=== PATIENT | female | born 1935 | race Caucasian/White ===

== ENCOUNTER → 2016-05-20 07:19 | Outpatient (CLI) | payer MEDICARE, BC ==
[2014-11-17 10:18] VITALS: BMI 34.7
[~2016-05-20 07:19] MED LIST: ALBUTEROL2.5 MG/3 M UPD; ALDACTONE50 MG PO; ASPIRIN EC81 M1 PO; AUGMENTIN 875-11 TAB PO; BUMEX2 MG PO; CARAFATE1 G/10 ML PO; CINNAMON500 MG PO; COREG 3.1253.125 MG PO; CQ-10 PO; CRANBERRY475 MG PO; FLAGYL 500500 MG/100 PO; FLUTICASONE PRO16 GM NASAL; FOLIC ACID1 MG PO; GLUCOPHAGE500 MG PO; GLUCOTROL 5 MG T5 MG PO; GLUCOTROL XL 5 M5 MG PO; GRAPESEED PO; K-TAB10 MEQ PO; LEVAQUIN500 MG PO; LISINOPRIL5 MG PO; LYRICA150 MG; LYRICA150 MG PO; METOPROLOL TART50 MG PO; MUCINEX DM ER1 EAC1 PO; NITROQUICK0.4 MG SL; NITROSTAT0.4 MG SL; PREDNISONE10 MG PO; PRILOSEC20 MG PO; PROTONIX40 MG PO; PROVENTIL HFA6.7 GM INH; REQUIP0.25 MG PO; REQUIP0.5 MG PO; SINGULAIR10 MG PO; SYMBICORT 16010.2 GM INH; TRAZODONE HCL150 MG PO; TRAZODONE HCL50 MG PO; TUMS500 MG PO; VITAMIN D31000 UNI2 PO; ZOCOR20 MG PO; [UNRECOGNIZED DRUG - OTHER] PO
== END | disposition home or self-care (01) ==
LOC: D.RT 07:19
DX: J45.909 Unspecified asthma, uncomplicated (principal)

== ENCOUNTER 2016-06-14 18:05 | Observation (INO) | payer MEDICARE, BC ==
[~2016-06-14] VITALS: Ht 165.1 cm; Wt 97.8 kg
--- NOTE | ~2016-06-14 | CN ---
PATIENT NAME:CINTHIA LYNCH MEDICAL RECORD: [id number] : 37 LOCATION:[facility] D.2118 ADMIT DATE: 06/14/16 ACCOUNT: [id number] CONSULTING PHYSICIAN: INDIA BANUELOS MD REFERRING PHYSICIAN: SANDEE PUTNAM MD DATE OF CONSULTATION: 06/15/2016 ADMITTING DIAGNOSES: 1. Chest pain. 2. Diabetes. 3. Hypertension. 4. Gastroesophageal reflux disease. 5. Abnormal ECG. HISTORY OF PRESENT ILLNESS: Mrs. Lynch presents with left arm pain, not really chest pain. She had a similar presentation [address] [facility], underwent cardiac catheterization revealing no significant coronary artery disease. She was only treated medically for hypertension with Aldactone, Bumex and Coreg. PHYSICAL EXAMINATION: GENERAL APPEARANCE: Well-nourished, well-developed, appears stated age. Level of distress, comfortable. PSYCHIATRIC: Mental status, alert, normal affect. Orientation, oriented to time, place and person. EYES: Lids and conjunctiva, noninjected. No discharge, no pallor. ENT: Lips, teeth, gums, normal dentition. Oropharynx, no cyanosis, no pallor. NECK: Carotid arteries, bilateral normal upstroke, no bruits, no thrills. JUGULAR VEINS: No jugular venous pressure or distention. CERVICAL LYMPH NODES: Nontender, nonenlarged. THYROID: Not enlarged. Nontender. No nodules. LUNGS: Respiratory effort, unlabored. CHEST: Normal curvature. No thoracic deformity. No chest wall tenderness. Percussion, resonant. Auscultation, clear. No wheezes, no rales, no rhonchi. CARDIOVASCULAR: Precordial exam, nondisplaced. No heaves or pericardial thrills. Rate and rhythm, regular. Heart sounds, normal S1, normal S2. No S3, no gallop, no rub. Systolic murmur, not heard. Diastolic murmur, not heard. EXTREMITIES: No cyanosis, no edema. Peripheral pulses, full and equal in all extremities, except as noted. No bruits appreciated. ABDOMEN: Soft, nondistended. Normal aorta. No bruit. Nontender. No masses. Liver, nontender, no hepatomegaly. Spleen, nontender, no splenomegaly. MUSCULOSKELETAL: No joint tenderness. No joint swelling. No erythema. NEUROLOGICAL: Normal gait, normal strength, normal tone. SKIN: Warm and dry. REVIEW OF SYSTEMS: The patient reports easy bruising but reports no swollen glands. The patient reports no fever, no night sweats, no significant weight gain, no significant weight loss. No significant exercise tolerance. The patient reports no dry eyes, no irritation, no vision change. Patient reports no difficulty hearing and no ear pain. Patient reports no frequent nose bleeds or nose and sinus problems. Patient reports on arm pain on exertion. No shortness of breath while lying down. No history of heart murmur. Patient reports no cough, no wheezing or coughing up blood. Patient reports no abdominal pain, no vomiting. Normal appetite. No diarrhea and not vomiting blood. No nausea and no constipation. Patient reports no incontinence. No difficulty urinating. No hematuria. No increased frequency. Patient reports CONSULT REPORT [id number] CINTHIA LYNCH no muscle aches. No weakness, no arthralgias, no back pain. No swelling of the extremities. Patient reports no abnormal mole, no jaundice, no rashes. Reports no loss of consciousness. No weakness and no numbness. No seizures, dizziness, or headaches. The patient reports no depression, no sleep disturbance, feeling safe in a relationship and no alcohol abuse. Patient reports on fatigue. Reports no runny nose or sinus pressure. No itching, no hives, and no frequent sneezing. DIAGNOSTIC DATA: A 12-lead ECG is suggestive of previous anterior myocardial infarction with poor R-wave progression, but no ST-T abnormalities. Her troponin is normal. OVERALL IMPRESSION: Chest pain, normal cardiac catheterization 1 month ago, normal troponin. At this time, no other cardiac workup treatment is necessary. Chest pain is noncardiac. TRANSINT:[id number] Voice Confirmation ID: [id number] DOCUMENT ID: [id number] INDIA BANUELOS MD CC: [id number] DICTATION DATE: 06/15/16 1018 DISPLAY DESIGNER OUTSIDE: 06/15/16 1055 [facility] [place] [address] [place] [address]
[~2016-06-14 18:05] MED LIST changes: -COREG 3.1253.125 MG PO; -FLUTICASONE PRO16 GM NASAL; -GLUCOTROL 5 MG T5 MG PO; -NITROSTAT0.4 MG SL; -PREDNISONE10 MG PO; -SINGULAIR10 MG PO; -SYMBICORT 16010.2 GM INH
[2016-06-14 19:20] LABS: BASOPHILS 0.1 % (0-2); EOSINOPHILS 1.2 % (0-7); HEMATOCRIT 45.4 % (36.0-48.0); HEMOGLOBIN 15.3 g/dL (12-16); IMMATURE GRANULOCYTES 0.7 % (0-5); LYMPHOCYTES 17.9 % (15-50); MCH 29.3 pg (26.0-34.0); MCHC 33.7 g/dL (31.0-37.0); MCV 86.8 fL (80.0-100.0); MEAN PLATELET VOLUME 11.2 fL (7.4-10.4); MONOCYTES 8.8 % (2-11); NEUTROPHILS 71.3 % (40-80); PLATELET COUNT 218 10x3/uL (130-400); RBC 5.23 10x6/uL (4.00-5.40); RDW 14.7 % (11.5-14.5); WBC 10.4 10x3/uL (4.8-10.8)
[2016-06-14 19:31] LABS: ALBUMIN 4.2 g/dL (3.4-5.0); ALKALINE PHOSPHATASE 100 U/L (46-116); ALT (SGPT) 44 U/L (10-68); BILIRUBIN - TOTAL 0.73 mg/dL (0.2-1.3); CALC OSMOLALITY 292 mosm/kg (275-300); CALCIUM 10.3 mg/dL (8.5-10.1); CARBON DIOXIDE 27.3 mmol/L (21.0-32.0); CHLORIDE - SERUM 102 mmol/L (98-107); CREATININE - SERUM 1.2 mg/dL (0.6-1.3); GLUCOSE 157 mg/dL (74-106); POTASSIUM - SERUM 4.1 mmol/L (3.5-5.1); PROTEIN - SERUM 9.1 g/dL (6.4-8.2); SODIUM 142 mmol/L (136-145); UREA NITROGEN 33 mg/dL (7-18); eGFR NON AFRICAN AMERICAN 46 mL/min (90-120)
[2016-06-14 19:42] LABS: CHOL - HDL RATIO 4.4 ratio (2.3-4.1); CHOLESTEROL, TOTAL 184 mg/dL (0-200); CKMB 0.4 U/L (0.0-3.6); CREATINE KINASE 44 UL (21-215); HDL CHOLESTEROL 42 mg/dL (32-96); LDL CHOLESTEROL 95 mg/dL (0-100); LDL-HDL RATIO 2.3 ratio (1.5-3.5); TRIGLYCERIDE 239 mg/dL (30-200); TROPONIN-I < 0.017 ng/mL (0.000-0.060)
[2016-06-14] MEDS ORDERED: GLUCOTROL 5 MG T5 MG PO (22:36)
[2016-06-14] MEDS ORDERED: SYMBICORT 16010.2 GM INH (22:38)
[2016-06-14] MEDS ORDERED: SINGULAIR10 MG PO (22:38)
[2016-06-14] MEDS ORDERED: FLUTICASONE PRO16 GM NASAL (22:38)
[2016-06-14] MEDS ORDERED: COREG 3.1253.125 MG PO (22:39)
[2016-06-14] MEDS ORDERED: NITROSTAT0.4 MG SL (22:39)
--- NOTE | 2016-06-14 22:40 | NUR ---
PT ARRIVES TO THE FLOOR VIA WC ACCOMPANIED BY ER NURSE. PLACED ON TELE UPON ARRIVAL, NSR ON MONITOR - HR 84. DENIES ANY C/O PAIN. ROOM AIR, SATS 94%. DAUGHTER HERE WITH PT AT THE BEDSIDE. ADMISSION ASSESSMENT AND HISTORY COMPLETED, VSS, AFEBRILE. UNIT ROUTINES AND PROTOCOLS DISCUSSED WITH PT, VERBALIZED UNDERSTANDING. CALL LIGHT PLACED WITHIN REACH. WILL CONT TO MONITOR.
[2016-06-14 22:54] VITALS: BP 140/84; Ht 165.1 cm; Wt 97.8 kg
[2016-06-15 04:26] VITALS: BP 117/66
--- NOTE | 2016-06-15 07:30 | NUR ---
RECEIVED PT IN BED AAOX 4 RESP UNLABORED DENIES ANY NEEDS OR DISCOMFORT AT THIS TIME NAD NOTED
[2016-06-15 07:59] VITALS: BP 117/63
[2016-06-15 12:40] VITALS: BP 110/59
[2016-06-15] MEDS ORDERED: PREDNISONE10 MG PO (14:04)
--- NOTE | 2016-06-15 17:30 | NUR ---
REVIEWED DISCHARGE INSTRUCTIONS WITH PT STATES UNDERSTANDING COPY GIVEN TO PT DCD SALINE LOCK TO RAC WITH 20 GA IV CATHETER TIP INTACTNO REDNESS OR EDEMA NOTED AT SITE PT DISCHARGED HOME LEFT UNIT IN STABLE CONDITION VIA W/C WITH ALL PERSONAL BELONGINGS
== END 2016-06-15 17:30 | disposition home or self-care (01) ==
LOC: D.ER 18:05 → D.M2 21:27 → OBSVTIME 22:40 → D.M2 06-15 17:30
PROVIDERS: Family Medicine; ADMIT Family Medicine
DX: R07.89 Other chest pain (principal); K52.9 Noninfective gastroenteritis and colitis, unspecified; E11.65 Type 2 diabetes mellitus with hyperglycemia; R94.31 Abnormal electrocardiogram [ECG] [EKG]; I11.0 Hypertensive heart disease with heart failure; I50.9 Heart failure, unspecified; G47.33 Obstructive sleep apnea (adult) (pediatric); K57.90 Diverticulosis of intestine, part unspecified, without perforation or abscess without bleeding; K21.9 Gastro-esophageal reflux disease without esophagitis

== ENCOUNTER → 2017-01-29 09:21 | Outpatient (CLI) | payer MEDICARE, BC ==
[2016-06-14 22:54] VITALS: BMI 36.6
[~2017-01-29 09:21] MED LIST changes: +COREG 3.1253.125 MG PO; +FLUTICASONE PRO16 GM NASAL; +GLUCOTROL 5 MG T5 MG PO; +NITROSTAT0.4 MG SL; +PREDNISONE10 MG PO; +SINGULAIR10 MG PO; +SYMBICORT 16010.2 GM INH
== END | disposition home or self-care (01) ==
LOC: D.RAD 09:21
DX: J45.909 Unspecified asthma, uncomplicated (principal)

== ENCOUNTER → 2017-06-26 13:23 | Outpatient (CLI) | payer MEDICARE, BC ==
[2016-06-14 22:54] VITALS: BMI 36.6
[~2017-06-26 13:23] MED LIST changes: +JANUVIA50 MG PO; +ROBAXIN-750750 MG PO; +ZIPSOR25 MG PO
== END | disposition home or self-care (01) ==
LOC: D.CT 13:23
DX: N18.9 Chronic kidney disease, unspecified (principal)

== ENCOUNTER 2017-07-14 16:03 | Emergency (ER) | payer MEDICARE, BC ==
[2016-06-14 22:54] VITALS: BMI 36.6
[~2017-07-14 16:03] MED LIST changes: -JANUVIA50 MG PO; -ROBAXIN-750750 MG PO; -ZIPSOR25 MG PO
[2017-07-14 19:22] LABS: BASOPHILS 0.2 % (0-2); EOSINOPHILS 1.5 % (0-7); HEMATOCRIT 41.8 % (36.0-48.0); HEMOGLOBIN 13.8 g/dL (12-16); IMMATURE GRANULOCYTES 0.5 % (0-5); LYMPHOCYTES 22.5 % (15-50); MCH 29.3 pg (26.0-34.0); MCV 88.7 fL (80.0-100.0); MONOCYTES 11.7 % (2-11); NEUTROPHILS 63.6 % (40-80); RBC 4.71 10x6/uL (4.00-5.40); RDW 14.6 % (11.5-14.5); WBC 8.4 10x3/uL (4.8-10.8)
[2017-07-14 19:33] LABS: PLATELET COUNT 161 10x3/uL (130-400)
== END 2017-07-14 19:34 | disposition home or self-care (01) ==
LOC: D.ER 16:03
PROVIDERS: Physician Assistant Medical
DX: S40.011A Contusion of right shoulder, initial encounter (principal); S70.01XA Contusion of right hip, initial encounter; S00.83XA Contusion of other part of head, initial encounter; V43.52XA Car driver injured in collision with other type car in traffic accident, initial encounter; Y93.89 Activity, other specified; Y92.410 Unspecified street and highway as the place of occurrence of the external cause; I50.9 Heart failure, unspecified; E11.9 Type 2 diabetes mellitus without complications; I10 Essential (primary) hypertension; Z90.5 Acquired absence of kidney

== ENCOUNTER 2017-07-30 12:21 | Emergency (ER) | payer MEDICARE, BC ==
[~2017-07-30] VITALS: Ht 165.1 cm; Wt 100.9 kg
[2017-07-30 12:54] VITALS: Ht 165.1 cm; Wt 100.9 kg
[2017-07-30] MEDS ORDERED: JANUVIA50 MG PO (13:01)
[2017-07-30 13:44] LABS: BASOPHILS 0.2 % (0-2); EOSINOPHILS 2.5 % (0-7); HEMATOCRIT 42.9 % (36.0-48.0); HEMOGLOBIN 14.4 g/dL (12-16); IMMATURE GRANULOCYTES 0.6 % (0-5); LYMPHOCYTES 20.9 % (15-50); MCH 29.8 pg (26.0-34.0); MCHC 33.6 g/dL (31.0-37.0); MCV 88.8 fL (80.0-100.0); MEAN PLATELET VOLUME 11.3 fL (7.4-10.4); MONOCYTES 10.6 % (2-11); NEUTROPHILS 65.2 % (40-80); PLATELET COUNT 191 10x3/uL (130-400); RBC 4.83 10x6/uL (4.00-5.40); RDW 14.6 % (11.5-14.5); WBC 8.9 10x3/uL (4.8-10.8)
[2017-07-30 14:00] LABS: ALKALINE PHOSPHATASE 99 U/L (46-116); ALT (SGPT) 103 U/L (10-68); BILIRUBIN - TOTAL 0.81 mg/dL (0.2-1.3); CALC OSMOLALITY 290 mosm/kg (275-300); CALCIUM 9.3 mg/dL (8.5-10.1); CARBON DIOXIDE 31.1 mmol/L (21.0-32.0); CHLORIDE - SERUM 103 mmol/L (98-107); CREATININE - SERUM 1.1 mg/dL (0.6-1.3); GLUCOSE 139 mg/dL (74-106); POTASSIUM - SERUM 3.7 mmol/L (3.5-5.1); PROTEIN - SERUM 8.6 g/dL (6.4-8.2); SODIUM 143 mmol/L (136-145); UREA NITROGEN 24 mg/dL (7-18); eGFR NON AFRICAN AMERICAN 50 mL/min (90-120)
[2017-07-30 14:11] LABS: CKMB 0.5 U/L (0.0-3.6); CREATINE KINASE 42 UL (21-215); PRO BNP 43 pg/mL (0-450)
[2017-07-30] MEDS ORDERED: ROBAXIN-750750 MG PO (16:26)
[2017-07-30] MEDS ORDERED: ZIPSOR25 MG PO (16:26)
[2017-07-30 16:54] VITALS: BP 130/84
== END 2017-07-30 16:48 | disposition home or self-care (01) ==
LOC: D.ER 12:21
PROVIDERS: Family Medicine
DX: S16.1XXA Strain of muscle, fascia and tendon at neck level, initial encounter (principal); V49.9XXA Car occupant (driver) (passenger) injured in unspecified traffic accident, initial encounter; Y93.89 Activity, other specified; Y92.410 Unspecified street and highway as the place of occurrence of the external cause; M25.511 Pain in right shoulder; E11.9 Type 2 diabetes mellitus without complications; I10 Essential (primary) hypertension; I50.9 Heart failure, unspecified; K21.9 Gastro-esophageal reflux disease without esophagitis; Z90.5 Acquired absence of kidney

== ENCOUNTER → 2017-09-25 07:32 | Outpatient (CLI) | payer MEDICARE, BC ==
[2017-07-30 12:54] VITALS: BMI 37.0
[~2017-09-25 07:32] MED LIST changes: +JANUVIA50 MG PO; +ROBAXIN-750750 MG PO; +ZIPSOR25 MG PO
== END | disposition home or self-care (01) ==
LOC: D.RT 07:32
DX: J84.9 Interstitial pulmonary disease, unspecified (principal)

== ENCOUNTER → 2017-10-07 08:29 | Outpatient (CLI) | payer MEDICARE, BC ==
[2017-07-30 12:54] VITALS: BMI 37.0
== END | disposition home or self-care (01) ==
LOC: D.NM 08:29
DX: M25.561 Pain in right knee (principal)

== ENCOUNTER → 2018-06-25 09:19 | Outpatient (CLI) | payer MEDICARE, BC ==
[2017-07-30 12:54] VITALS: BMI 37.0
== END | disposition home or self-care (01) ==
LOC: D.NM 09:19
PROVIDERS: ATTEND Orthopaedic Surgery
DX: M25.562 Pain in left knee (principal)

== ENCOUNTER → 2018-10-07 07:23 | Outpatient (CLI) | payer MEDICARE, BC ==
[2017-07-30 12:54] VITALS: BMI 37.0
--- NOTE | 2018-10-11 09:24 | EC ---
PATIENT:CINTHIA LOMELI DATE OF SERVICE: 10/07/18 SEX: F MEDICAL RECORD: [id number] DATE OF : 37 LOCATION:D.RT AGE OF PATIENT: 83 ADMISSION DATE: 10/07/18 REFERRING PHYSICIAN: INTERPRETING PHYSICIAN: LAWANDA FLYNN MD ECHOCARDIOGRAM REPORT ECHO CHARGES 4 ECHO COMPLETE Date: 10/07/18 CLINICAL DIAGNOSIS: DYSPNEA ECHOCARDIOGRAPHIC MEASUREMENTS (adult normal given) AC root (d.<3.7cm) 3.1 cm LV Septum d (<1.2 cm> 1.2 cm Valve Excursion 1.5 cm LV Septum (systole) 1.6 cm Left Atria (s.<4.0cm> 4.1 cm LVPW d(<1.2cm) 1.2 cm RV (d.<2.3cm) 2.3 cm LVPW (sytole) 2.0 cm LV diastole(<5.6CM) 5.3 cm MV E-F(>70mm/sec) cm LV systole 3.5 cm LVOT Diameter 1.9 cm MV exc.(>10mm) cm Est.ejection fraction (50-75%) % DOPPLER: LVIT cm/sec A 113 cm/sec E 48.0 cm/sec LA cm/sec RVSP 22.0 mmHg LVOT 88.0 cm/sec AOP1/2T m/s Asc. Ao 117 cm/sec RVOT 75.0 cm/sec RA cm/sec PA 131 cm/sec AV Gradient Peak 5.5 mmHg AV Mean 2.9 mmHg AV Area 1.9 cm MV Gradient Peak 5.8 mmHg MV Mean 1.8 mmHg MV Area cm COMMENTS: Director Instrumentation: 1 [employer]EN[employer] Product Development Manager: 3 Dr. Tom TAPE# PACS Pericardial Effusion N DATE OF SERVICE: Adequate 2D, color flow, spectral Doppler, and M-mode. Borderline LVH. LV internal dimensions are normal. 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 Aortic valve sclerosis without stenosis by Doppler interrogation. Left atrium upper limits of normal at 4.1 cm. Mitral valve shows no prolapse. Trace MR. Right-sided chambers are grossly normal. Mild TR. TRANSINT:[id number] Voice Confirmation ID: [id number] DOCUMENT ID: [id number] ECHOCARDIOGRAM REPORT [id number] CINTHIA LOMELI LAWANDA FLYNN MD at 0924 CC: [id number] DICTATION DATE: 10/08/18 1243 TAILINGS MAN: 10/08/18 1312 DEP CLI 10/07/18 [id number] [place] [address]
== END | disposition home or self-care (01) ==
LOC: D.RT 07:23
PROVIDERS: ATTEND Internal Medicine Pulmonary Disease
DX: J45.20 Mild intermittent asthma, uncomplicated (principal); J98.4 Other disorders of lung; R06.00 Dyspnea, unspecified